=== PATIENT | male | born 1990 | race Caucasian/White ===

== ENCOUNTER 2020-07-03 22:22 | Emergency (ER) | payer OTHER ==
[~2020-07-03] VITALS: Ht 180.3 cm; Wt 100.0 kg
[2020-07-03 22:54] VITALS: TEMP 97
[2020-07-04 02:22] VITALS: BP 114/78; PULSE 65
== END 2020-07-04 02:28 | disposition home or self-care (01) ==
LOC: COL.ER 22:22
DX: S91.311A Laceration without foreign body, right foot, initial encounter (principal); F17.290 Nicotine dependence, other tobacco product, uncomplicated; W26.8XXA Contact with other sharp object(s), not elsewhere classified, initial encounter